=== PATIENT | female | born 2000 | race American Indian/Alaskan Native ===

== ENCOUNTER 2020-11-23 00:20 | Emergency (ER) | payer SELFPAY ==
[2020-11-23 01:12] VITALS: BP 121/74
[2020-11-23] MEDS ORDERED: ACETAMINOPHEN 500 MG TAB PO ONE (01:13)
[2020-11-23] MEDS ORDERED: KETOROLAC 30 MG/1 ML INJ IM ONE (02:19)
[2020-11-23] MEDS ORDERED: ONDANSETRON 4 MG ODT TAB PO ONE (02:19)
[2020-11-23] MEDS ORDERED: BUTALB/ACETAMINOPHEN/CAFFEINE TAB PO ONE (02:19)
--- NOTE | 2020-11-23 03:27 | Emergency Department Report ---
ED General Adult HPI - General Chief complaint: Earache Stated complaint: HEADACHA, EAR PAIN Source: patient Mode of arrival: Ambulatory Limitations: No Limitations - History of Present Illness Initial comments: Patient is a nulliparous 20-year-old -Irish female with no past medical history who presents to the ED with complaint of persistent severe occipital headache that radiates to the parietal scalp intermittently for the last 3 months, worse in the last 1 week. Patient states that she has been taking riij-soa-efnnjbv medications for pain with no relief. Patient denies nausea, vomiting, dizziness, syncope, fall, traumatic injury, fever, chills, cough, sore throat, nasal and sinus congestion, neck pain, back pain, chest pain or shortness of breath, dizziness or syncope and seizures. MD Complaint: Severe headache; bilateral ear pain -: Gradual, month(s) (3) Location: head, face (Bilateral ears) Radiation: non-radiation Severity scale (0 -10): 7 Quality: aching, sharp Consistency: constant Improves with: none Worsens with: none Associated Symptoms: denies other symptoms, headaches. denies: confusion, chest pain, cough, diaphoresis, fever/chills, loss of appetite, malaise, nausea/vomiting, rash, seizure, shortness of breath, syncope, weakness Treatments Prior to Arrival: none - Related Data Previous Rx's Medication Instructions Recorded Last Taken Type Butalb/Acetamin/Caff 50-325-40 1 - 2 tab PO Q6HR PRN #15 tab 11/23/20 Unknown Rx [Fioricet 50-325-40] Cyclobenzaprine [Flexeril] 10 mg PO TID PRN #21 tablet 11/23/20 Unknown Rx Ibuprofen [Motrin] 800 mg PO Q8HR PRN #30 tablet 11/23/20 Unknown Rx Allergies Allergy/AdvReac Type Severity Reaction Status Date / Time No Known Allergies Allergy Unverified 11/23/20 01:12 ED Review of Systems ROS: Stated complaint: HEADACHA, EAR PAIN Other details as noted in HPI Constitutional: malaise. denies: chills, fever, weakness Eyes: denies: eye pain, eye discharge, vision change ENT: ear pain (Bilateral ear pain). denies: throat pain, dental pain, hearing loss, congestion Respiratory: denies: cough, shortness of breath, wheezing Cardiovascular: denies: chest pain, palpitations Endocrine: no symptoms reported Gastrointestinal: denies: abdominal pain, nausea, vomiting, diarrhea Genitourinary: denies: urgency, dysuria, discharge Musculoskeletal: denies: back pain, joint swelling, arthralgia Skin: denies: rash, lesions Neurological: headache (Occipital). denies: weakness, paresthesias Psychiatric: anxiety. denies: depression Hematological/Lymphatic: denies: easy bleeding, easy bruising ED Past Medical Hx - Past Medical History Previous Medical History?: No - Surgical History Past Surgical History?: No - Social History Smoking Status: Never Smoker - Medications Home Medications: Home Medications Medication Instructions Recorded Confirmed Last Taken Type Butalb/Acetamin/Caff 50-325-40 1 - 2 tab PO Q6HR PRN #15 tab 11/23/20 Unknown Rx [Fioricet 50-325-40] Cyclobenzaprine [Flexeril] 10 mg PO TID PRN #21 tablet 11/23/20 Unknown Rx Ibuprofen [Motrin] 800 mg PO Q8HR PRN #30 tablet 11/23/20 Unknown Rx ED Physical Exam - General Limitations: No Limitations General appearance: alert, in no apparent distress - Head Head exam: Present: atraumatic, normocephalic, normal inspection - Eye Eye exam: Present: normal appearance, PERRL, EOMI Pupils: Present: normal accommodation - ENT ENT exam: Present: normal exam, normal orophraynx, mucous membranes moist, TM's normal bilaterally, normal external ear exam - Neck Neck exam: Present: normal inspection, full ROM - Respiratory Respiratory exam: Present: normal lung sounds bilaterally. Absent: respiratory distress, wheezes, rales, rhonchi, chest wall tenderness, accessory muscle use, decreased breath sounds, prolonged expiratory - Cardiovascular Cardiovascular Exam: Present: regular rate, normal rhythm, normal heart sounds. Absent: systolic murmur, diastolic murmur, rubs, gallop - GI/Abdominal GI/Abdominal exam: Present: soft, normal bowel sounds. Absent: tenderness, guarding, rebound, hyperactive bowel sounds, hypoactive bowel sounds, organomegaly - Extremities Exam Extremities exam: Present: normal inspection, full ROM, normal capillary refill - Back Exam Back exam: Present: normal inspection, full ROM. Absent: tenderness, CVA tenderness (R), CVA tenderness (L), muscle spasm, paraspinal tenderness, vert ebral tenderness - Neurological Exam Neurological exam: Present: alert, oriented X3, CN II-XII intact, normal gait, reflexes normal - Psychiatric Psychiatric exam: Present: normal affect, normal mood - Skin Skin exam: Present: warm, dry, intact, normal color. Absent: rash ED Course Vital Signs 11/23/20 01:06 Temperature 98.3 F Respiratory 18 Rate Blood Pressure 121/74 ED Medical Decision Making - Radiology Data Radiology results: report reviewed, image reviewed [address] [address] Cat Scan Report Signed Patient: JAIME REDMAN MR#: [id number] [birth year] : 2000 Acct:[id number] Age/Sex: 20 / F ADM Date: 11/23/20 Loc: ED Attending Dr: Ordering Physician: SUSANA CONTRERAS Date of Service: 11/23/20 Procedure(s): CT head/brain wo con Accession Number(s): [id number] cc: SUSANA CONTRERAS CT head without contrast INDICATION : Headache for 2 weeks. TECHNIQUE: Axial imaging performed from the skull apex through the skull base without the use of contrast. All CT examinations performed at this facility utilize dose modulation, iterative reconstruction or weight-based dosing, when appropriate, to reduce radiation dose to as low as reasonably achievable. COMPARISON: None FINDINGS: No acute intracranial hemorrhage or parenchymal abnormality. Ventricles are normal in size and appear symmetric. Soft tissues including the orbits appear normal. No acute osseous abnormality. Sinuses and mastoid air cells are clear. IMPRESSION: No acute abnormality. Signer Name: Mohit Dickey MD Signed: 11/23/2020 3:27 AM Workstation Name: [id number] Transcribed By: Dictated By: Mohit Dickey MD Electronically Authenticated By: Mohit Dickey MD Signed Date/Time: 11/23/20326 DD/ 4 TD/TT: - Medical Decision Making This is a nulliparous 20-year-old -Irish female with no past medical history who presents to the ED with complaint of persistent severe occipital headache that radiates to the parietal scalp intermittently for the last 3 months, worse in the last 1 week. Patient states that she has been taking afhu-yro-ibxbkda medications for pain with no relief. In the ED, patient is alert and oriented x3 and is not in any distress. Patient was treated for pain in the ED and head CT scan without contrast showed no acute intracranial abno rmalities or hemorrhage. On reevaluation, patient's pain is well controlled medications. Patient was discharged home on medications and advised to follow- up with her primary care physician in 5 to 7 days for reevaluation or return to the ED immediately if symptoms get worse. - Differential Diagnosis Migraine headache; tension headache; otitis media; URI Critical care attestation.: If time is entered above; I have spent that time in minutes in the direct care of this critically ill patient, excluding procedure time. ED Disposition Clinical Impression: Tension-type headache, not intractable Qualifiers: Headache chronicity pattern: acute headache Qualified Code(s): G44.209 - Tension-type headache, unspecified, not intractable Migraine headache without aura Qualifiers: Status migrainosus presence: without status migrainosus Intractability: not intractable Qualified Code(s): G43.009 - Migraine without aura, not intractable, without status migrainosus Disposition: DC-01 TO HOME OR SELFCARE Is pt being admited?: No Does the pt Need Aspirin: No Condition: Stable Instructions: Migraine Headache, [id number], Tension Headache, Adult, [id number], Recurrent Migraine Headache, [id number] Additional Instructions: The head CT scan without contrast showed no acute intracranial hemorrhage or abnormalities. Therefore take medication with food, plenty of fluids and follow-up with your primary care physician in 5 to 7 days for reevaluation. Return to the ED immediately if symptoms get worse. Prescriptions: Butalb/Acetamin/Caff 50-325-40 [Fioricet 50-325-40] 1 - 2 tab PO Q6HR PRN #15 tab PRN Reason: Headache Cyclobenzaprine [Flexeril] 10 mg PO TID PRN #21 tablet PRN Reason: Muscle Spasm Ibuprofen [Motrin] 800 mg PO Q8HR PRN #30 tablet PRN Reason: Severe pain Referrals: [facility] [Provider Group] - 3-5 Days Forms: Work/School Release Form(ED) Time of Disposition: 03:27 Print Language: SYRIAC
--- NOTE | 2020-11-23 03:32 | Cat Scan Report ---
CT head without contrast INDICATION : Headache for 2 weeks. TECHNIQUE: Axial imaging performed from the skull apex through the skull base without the use of con trast. All CT examinations performed at this facility utilize dose modulation, iterative reconstruct ion or weight-based dosing, when appropriate, to reduce radiation dose to as low as reasonably achiev able. COMPARISON: None FINDINGS: No acute intracranial hemorrhage or parenchymal abnormality. Ventricles are normal in si ze and appear symmetric. Soft tissues including the orbits appear normal. No acute osseous abnorm ality. Sinuses and mastoid air cells are clear. IMPRESSION: No acute abnormality. Signer Name: Mohit Dickey MD Signed: 11/23/2020 3:27 AM Workstation Name: [id number]
== END 2020-11-23 05:30 | disposition home or self-care (01) ==
LOC: ED 00:20
DX: G44.209 Tension-type headache, unspecified, not intractable (principal); G43.009 Migraine without aura, not intractable, without status migrainosus; Z79.899 Other long term (current) drug therapy
CPT/HCPCS: 70450; 96372; 99283; J1885; Q0162